=== PATIENT | male | born 1950 ===

== ENCOUNTER → 2019-02-12 | Outpatient (CLI) | payer MEDICARE ==
[~2019-02-12] MED LIST: Aspirin EC81 MG PO; BP MED; DOXE10 PO; LISHYD1012; TAMS.4ER; [UNRECOGNIZED DRUG - OTHER]
== END | disposition home or self-care (01) ==
LOC: LAB 10:28 → LAB SHORT 10:28
DX: N20.0 Calculus of kidney (principal); N40.1 Benign prostatic hyperplasia with lower urinary tract symptoms; N13.8 Other obstructive and reflux uropathy
CPT/HCPCS: 81050

== ENCOUNTER 2019-05-30 10:29 | Observation (INO) | payer MEDICARE ==
[~2019-05-30] VITALS: Ht 172.7 cm; Wt 110.9 kg
[~2019-05-30 10:29] MED LIST changes: -TAMS.4ER; +TAMS.4ER PO
[2019-05-30 11:26] LABS: BASOPHILS ABSOLUTE AUTO 0.08 K/mm3 (0.00-0.23); BASOPHILS PERCENT AUTO 1 % (0-2); EOSINOPHILS ABSOLUTE AUTO 0.17 K/mm3 (0.00-0.68); EOSINOPHILS PERCENT AUTO 2 % (0-6); Hematocrit 46.6 % (37.0-53.0); Hemoglobin 15.6 g/dL (13.5-17.5); IMMATURE GRAN ABSOLUTE AUTO 0.05 K/mm3 (0.00-0.10); IMMATURE GRAN PERCENT AUTO 1 % (0-1); LYMPHOCYTES PERCENT AUTO 22 % (21-46); MONOCYTES ABSOLUTE AUTO 0.94 K/mm3 (0.16-1.47); MONOCYTES PERCENT AUTO 10 % (4-13); Mean Corpuscular HGB 32.4 pg (26.0-34.0); Mean Corpuscular HGB Conc 33.5 g/dL (31.5-36.5); Mean Corpuscular Volume 97 fL (80-100); Mean Platelet Volume 12.4 fL (9.1-12.4); NEUTROPHILS ABSOLUTE AUTO 5.93 K/mm3 (1.96-9.15); NEUTROPHILS PERCENT AUTO 65 % (41-73); Platelet Count 223 K/mm3 (150-400); RDW Coefficient Variation 12.2 % (11.7-14.2); RDW Standard Deviation 43.7 fL (35.1-46.3); Red Blood Cell Count 4.81 M/mm3 (4.30-5.90); White Blood Cell Count 9.17 K/mm3 (4.00-11.30)
[2019-05-30] MEDS ORDERED: POTCIT10 PO (11:33)
[2019-05-30] MEDS ORDERED: FINA5 PO (11:34)
[2019-05-30] MEDS ORDERED: Toprol Xl50 MG PO (11:34)
[2019-05-30 11:47] LABS: Alanine Aminotransfer (ALT/SGP 71 U/L (12-78); Albumin, Blood 3.7 g/dL (3.4-5.0); Albumin/Globulin Ratio 0.9 (0.8-1.8); Alk Phos 162 U/L (50-136); Anion Gap 7 mmol/L (6-16); Aspartate Aminotrans (AST/SGOT 52 U/L (12-37); Bilirubin, Total 0.7 mg/dL (0.1-1.0); Blood Urea Nitrogen 10 mg/dL (8-24); Bun/Creatinine Ratio 10.6 (12.0-20.0); CO2, Blood 27 mmol/L (21-32); Chloride, Blood 110 mmol/L (98-108); Creatinine, Blood 0.94 mg/dL (0.60-1.20); Globulin, Blood 4.2 g/dL (2.2-4.0); Glomerular Filtration Rate >60 (60-); Glucose, Blood 121 mg/dL (70-99); Sodium, Blood 144 mmol/L (136-145); Total Protein, Blood 7.9 g/dL (6.4-8.2); Troponin I <0.015 ng/mL (0.000-0.040)
[2019-05-30 15:39] LABS: CPK Creatine Kinase 81 U/L (39-308)
[2019-05-30 15:43] LABS: Creatine Kinase MB <1.0 ng/mL (0.0-3.6); Creatine Kinase MB Index Unable to Calculate (0.0-4.0)
[2019-05-30 15:45] LABS: CHOL/HDL RATIO 7.1; Cholesterol 156 mg/dL (50-200); HDL Cholesterol 22 mg/dL (>39); LDL/HDL RATIO 4.5; Low Density Lipoprotein Chol 100 mg/dL (0-110); Magnesium, Blood 2.1 mg/dL (1.6-2.4); Triglycerides 171 mg/dL (30-160); Troponin I <0.015 ng/mL (0.000-0.040); Very Low Density Lipoprot Chol 34 mg/dL (6-32)
--- NOTE | 2019-05-30 17:47 | NUR ---
PT STATES EXPERIENCED LIGHTHEADEDNESS, FELT REALLY DIZZY WITH NITRO. CALLED DR. TOMLIN. THEA D/C NITRO PATCH, KEEP NITRO S/L ON EMAR IF NEED.
--- NOTE | 2019-05-30 18:37 | NUR ---
PT QUITE PLEASANT THIS AFT SINCE ADMIT. STATES ONLY LIGHT CHEST PAIN. REPORT OF SOME PAIN IN L ARM. MEDICATED WITH 12.5 MCG FENTANYL. DID RECEIVE GOOD PAIN RELEIF. IS PRESENTLY TALKING AND LAUGHING WITH FAMILY. PT STILL WORKS [employer]. CAR [employer]PA[employer] BUSINESS IN [place]. NO OTHER CONCERNS AT THIS TIME. BED IN LOW POSITION. CALL LITE IN REACH, CALLS APPROP
[2019-05-30 23:17] LABS: CPK Creatine Kinase 88 U/L (39-308); Troponin I <0.015 ng/mL (0.000-0.040)
[2019-05-30 23:27] LABS: Creatine Kinase MB <1.0 ng/mL (0.0-3.6); Creatine Kinase MB Index Unable to Calculate (0.0-4.0)
[2019-05-31 07:17] LABS: BASOPHILS ABSOLUTE AUTO 0.07 K/mm3 (0.00-0.23); BASOPHILS PERCENT AUTO 1 % (0-2); EOSINOPHILS ABSOLUTE AUTO 0.24 K/mm3 (0.00-0.68); EOSINOPHILS PERCENT AUTO 3 % (0-6); Hematocrit 44.3 % (37.0-53.0); Hemoglobin 14.9 g/dL (13.5-17.5); IMMATURE GRAN ABSOLUTE AUTO 0.03 K/mm3 (0.00-0.10); IMMATURE GRAN PERCENT AUTO 0 % (0-1); LYMPHOCYTES ABSOLUTE AUTO 1.98 K/mm3 (0.84-5.20); LYMPHOCYTES PERCENT AUTO 28 % (21-46); MONOCYTES ABSOLUTE AUTO 0.81 K/mm3 (0.16-1.47); MONOCYTES PERCENT AUTO 11 % (4-13); Mean Corpuscular HGB 33.2 pg (26.0-34.0); Mean Corpuscular HGB Conc 33.6 g/dL (31.5-36.5); Mean Corpuscular Volume 99 fL (80-100); Mean Platelet Volume 11.8 fL (9.1-12.4); NEUTROPHILS ABSOLUTE AUTO 4.07 K/mm3 (1.96-9.15); NEUTROPHILS PERCENT AUTO 57 % (41-73); Platelet Count 209 K/mm3 (150-400); RDW Coefficient Variation 12.1 % (11.7-14.2); RDW Standard Deviation 44.2 fL (35.1-46.3); Red Blood Cell Count 4.49 M/mm3 (4.30-5.90)
[2019-05-31 07:42] LABS: Anion Gap 6 mmol/L (6-16); Blood Urea Nitrogen 11 mg/dL (8-24); Bun/Creatinine Ratio 11.4 (12.0-20.0); CO2, Blood 28 mmol/L (21-32); CPK Creatine Kinase 97 U/L (39-308); Calcium, Blood 8.6 mg/dL (8.5-10.1); Chloride, Blood 108 mmol/L (98-108); Creatinine, Blood 0.97 mg/dL (0.60-1.20); Glomerular Filtration Rate >60 (60-); Glucose, Blood 159 mg/dL (70-99); Magnesium, Blood 2.3 mg/dL (1.6-2.4); Sodium, Blood 142 mmol/L (136-145); Troponin I <0.015 ng/mL (0.000-0.040)
[2019-05-31 07:43] LABS: Creatine Kinase MB <1.0 ng/mL (0.0-3.6); Creatine Kinase MB Index Unable to Calculate (0.0-4.0)
--- NOTE | 2019-05-31 08:00 | NUR ---
PT PLEASANT COOP A/O DENIES PAIN THIS MORNING. STATES IF ANY IS LIGHT IN LEFT ARM. DENIES CHEST PAIN. H/R REG, NO MURMER NOTED. PER TELE: NSR WITH OCC PVC'S RATE 65. LUNGS CLEAR, RESP EASY, UNLABORED. ON 1L O2. BT X4 LAST BM THIS AM. NORMAL PER PT. VOIDS INDEPENDANT IN ROOM. BED IN LOW POSITIOIN, CALL LITE IN REACH, CALLS APROP. AT BEDSIDE.
[2019-05-31] MEDS ORDERED: HYDCHL12.5 PO (08:59)
[2019-05-31] MEDS ORDERED: NITR.4SL SL (09:00)
--- NOTE | 2019-05-31 09:40 | NUR ---
UNABLE TO SCHEDULED OUTPATIENT STRESS TEST ON THE WEEKEND. DR NOBLES NOTIFIED BY BETTY CANTRELL AND REPORTS HE WILL PLACE AN ORDER FOR SUNDAY. ORDERS FAXED TO [facility] AND [facility] TO SCHEDULE OUTPATIENT STRESS TEST. [facility] NUMBER PLACED ON DISCHARGE PAPER WORK FOR PATIENT.
--- NOTE | 2019-05-31 10:45 | NUR ---
DISCHARGE REVIEWED WITH PT AND . IV PULLED INTACT. TELE REMOVED. PT VERBALIZED UNDERSTANDING OF MEDS, APPOINTMENTS. SPECIFICALLY THE STRESS TEST WILL CALL [facility] TO SCHEDULE FOR SUNDAY. PAPERS HAVE BEEN FAXED TO [facility] ALSO.
--- NOTE | 2019-05-31 10:52 | NUR ---
PT WHEELED TO DOOR BY GRACEE. [id number]
== END 2019-05-31 10:50 | disposition home or self-care (01) ==
LOC: ER 10:29 → MEDS 10:30 → ENPENDDIS 05-31 07:58 → MEDS 05-31 10:50
PROVIDERS: Physician Assistant; ADMIT Family Medicine
DX: R07.89 Other chest pain (principal); I16.0 Hypertensive urgency; I10 Essential (primary) hypertension; N40.0 Benign prostatic hyperplasia without lower urinary tract symptoms; E66.01 Morbid (severe) obesity due to excess calories; Z87.891 Personal history of nicotine dependence; Z86.73 Personal history of transient ischemic attack (TIA), and cerebral infarction without residual deficits; Z88.5 Allergy status to narcotic agent; Z79.899 Other long term (current) drug therapy; Z68.36 Body mass index [BMI] 36.0-36.9, adult
CPT/HCPCS: 36415; 71046; 80048; 80053; 80061; 82550; 82553; 83036; 83735; 83880; 84443; 84484; 85025; 93005; 93010; 93306; 96361; 96372; 96374; 96375; 99285-25; G0378; J0360; J1650; J3010; J7030

== ENCOUNTER → 2019-11-19 | Outpatient (CLI) | payer MEDICARE ==
[~2019-11-19] MED LIST changes: +FINA5 PO; +HYDCHL12.5 PO; +NITR.4SL SL; +POTCIT10 PO; +Toprol Xl50 MG PO
== END | disposition home or self-care (01) ==
LOC: LAB 07:00 → LAB SHORT 07:00 → EDSTATUS 01-21 16:50 → LAB FUT 01-21 16:50
DX: N20.0 Calculus of kidney (principal)
CPT/HCPCS: 81050

== ENCOUNTER 2022-04-24 10:51 | Inpatient (IN) | payer OTHER ==
[~2022-04-24] VITALS: Ht 177.8 cm; Wt 102.5 kg
[2022-04-24 11:22] LABS: BASOPHILS ABSOLUTE AUTO 0.08 K/mm3 (0.00-0.23); BASOPHILS PERCENT AUTO 1 % (0-2); EOSINOPHILS ABSOLUTE AUTO 0.24 K/mm3 (0.00-0.68); EOSINOPHILS PERCENT AUTO 3 % (0-6); Hematocrit 42.7 % (37.0-53.0); Hemoglobin 14.6 g/dL (13.5-17.5); IMMATURE GRAN ABSOLUTE AUTO 0.01 K/mm3 (0.00-0.10); IMMATURE GRAN PERCENT AUTO 0 % (0-1); LYMPHOCYTES ABSOLUTE AUTO 1.81 K/mm3 (0.84-5.20); LYMPHOCYTES PERCENT AUTO 24 % (21-46); MONOCYTES ABSOLUTE AUTO 0.58 K/mm3 (0.16-1.47); MONOCYTES PERCENT AUTO 8 % (4-13); Mean Corpuscular HGB 33.7 pg (26.0-34.0); Mean Corpuscular HGB Conc 34.2 g/dL (31.5-36.5); Mean Corpuscular Volume 99 fL (80-100); Mean Platelet Volume 12.2 fL (9.1-12.4); NEUTROPHILS ABSOLUTE AUTO 4.96 K/mm3 (1.96-9.15); NEUTROPHILS PERCENT AUTO 65 % (41-73); Platelet Count 214 K/mm3 (150-400); RDW Coefficient Variation 12.1 % (11.7-14.2); RDW Standard Deviation 44.1 fL (35.1-46.3); Red Blood Cell Count 4.33 M/mm3 (4.30-5.90); White Blood Cell Count 7.68 K/mm3 (4.00-11.30)
[2022-04-24 11:38] LABS: Albumin, Blood 3.4 g/dL (3.4-5.0); Albumin/Globulin Ratio 0.9 (0.8-1.8); Bilirubin, Total 0.5 mg/dL (0.1-1.0); Calcium, Blood 8.6 mg/dL (8.5-10.1); Creatinine, Blood 1.08 mg/dL (0.60-1.20); Globulin, Blood 3.9 g/dL (2.2-4.0); Potassium, Blood 4.2 mmol/L (3.5-5.5); Total Protein, Blood 7.3 g/dL (6.4-8.2)
[2022-04-24] MEDS ORDERED: ATOR40TA PO (17:25)
[2022-04-24] MEDS ORDERED: CLOP75 PO (17:26)
[2022-04-24] MEDS ORDERED: ASPI325 PO (17:26)
[2022-04-24] MEDS ORDERED: FINA5 PO (17:27)
[2022-04-24] MEDS ORDERED: METF500 PO (17:27)
[2022-04-24] MEDS ORDERED: LISI20 PO (17:27)
--- NOTE | 2022-04-24 19:57 | NUR ---
PATIENT IS ALERT AND ORIENTED AND COOPERATIVE WITH CARE. NO C/O DIZZINESS. SBA TO THE BATHROOM WITH FWW AND GAITBELT. AT BEDSIDE.
--- NOTE | 2022-04-25 03:45 | NUR ---
SUMMARY: PT A/OX4, CALLS APPROPRIATELY TO SPECIFY NEEDS AND IS PLEASANT AND COOPERATIVE W/CARE. REMAINED AT BEDSIDE AND OCCASIONALLY ASSISTS W/CARE. HE'S UP W/1PA D/T BEING UNSTEADY AT TIME AND MOVING QUICKLY. HE USED URINAL IN BED AND SLEPT MOST OF NOCTE. NO DEFICITS OBSERVED BUT PT DOES REPORT NUMBNESS TO L.SIDE POST CVA APPROX 1 MONTH AGO. HE'S DENIED DIZZYNESS AND ALL OTHER S/S STROKE THIS SHIFT. NS WAS COMMENCED AT 125 ML/HR X1 BAG AND HE'S BEEN NPO EXCEPT ICE/MEDS PENDING CORONARY RISK PANEL THIS AM. HE'S REMAINED NSR ON TELEMETRY AT 60'S BPM. VSS/AFEBRILE. NO ACUTE CHANGES. WCTM/REPORT TO DAY RN.
[2022-04-25 05:31] LABS: BASOPHILS ABSOLUTE AUTO 0.07 K/mm3 (0.00-0.23); BASOPHILS PERCENT AUTO 1 % (0-2); EOSINOPHILS ABSOLUTE AUTO 0.38 K/mm3 (0.00-0.68); EOSINOPHILS PERCENT AUTO 5 % (0-6); Hemoglobin 13.6 g/dL (13.5-17.5); IMMATURE GRAN ABSOLUTE AUTO 0.02 K/mm3 (0.00-0.10); IMMATURE GRAN PERCENT AUTO 0 % (0-1); LYMPHOCYTES ABSOLUTE AUTO 2.59 K/mm3 (0.84-5.20); LYMPHOCYTES PERCENT AUTO 31 % (21-46); MONOCYTES ABSOLUTE AUTO 0.72 K/mm3 (0.16-1.47); MONOCYTES PERCENT AUTO 9 % (4-13); Mean Corpuscular HGB 33.6 pg (26.0-34.0); Mean Corpuscular Volume 99 fL (80-100); Mean Platelet Volume 12.7 fL (9.1-12.4); NEUTROPHILS ABSOLUTE AUTO 4.55 K/mm3 (1.96-9.15); NEUTROPHILS PERCENT AUTO 55 % (41-73); Platelet Count 202 K/mm3 (150-400); RDW Coefficient Variation 11.9 % (11.7-14.2); RDW Standard Deviation 43.6 fL (35.1-46.3); Red Blood Cell Count 4.05 M/mm3 (4.30-5.90); White Blood Cell Count 8.33 K/mm3 (4.00-11.30)
[2022-04-25 06:01] LABS: Anion Gap 4 mmol/L (6-16); Blood Urea Nitrogen 15 mg/dL (8-24); Bun/Creatinine Ratio 14.6 (12.0-20.0); CO2, Blood 25 mmol/L (21-32); Calcium, Blood 8.6 mg/dL (8.5-10.1); Chloride, Blood 113 mmol/L (98-108); Cholesterol 69 mg/dL (50-200); Creatinine, Blood 1.03 mg/dL (0.60-1.20); Glomerular Filtration Rate 78 (60-); Glucose, Blood 104 mg/dL (70-99); HDL Cholesterol 23 mg/dL (>39); LDL/HDL RATIO 0.9; Low Density Lipoprotein Chol 21 mg/dL (0-110); Potassium, Blood 3.8 mmol/L (3.5-5.5); Sodium, Blood 142 mmol/L (136-145); Triglycerides 126 mg/dL (30-160); Very Low Density Lipoprot Chol 25 mg/dL (6-32)
[2022-04-25] MEDS ORDERED: FISH OIL PO (12:19)
== END 2022-04-25 17:09 | disposition home or self-care (01) | DRG 66 ==
LOC: ER 10:51 → ERHOLD 14:19 → MEDS 14:19
PROVIDERS: Emergency Medicine; Nurse Practitioner Acute Care; ADMIT Internal Medicine
DX: I63.9 Cerebral infarction, unspecified (principal); I10 Essential (primary) hypertension; N40.0 Benign prostatic hyperplasia without lower urinary tract symptoms; Z86.73 Personal history of transient ischemic attack (TIA), and cerebral infarction without residual deficits; E66.01 Morbid (severe) obesity due to excess calories; Z87.442 Personal history of urinary calculi; Z98.890 Other specified postprocedural states; Z87.891 Personal history of nicotine dependence; Z68.34 Body mass index [BMI] 34.0-34.9, adult; R26.81 Unsteadiness on feet
CPT/HCPCS: 36415; 70450; 70544; 70551; 80048; 80053; 80061; 82947; 83036; 84484; 85025; 93005; 93010; 93306; 93880; 96374; 97110; 97116; 97162; 97165; 97535; 99285-25; A9270; J1650; J2405; J7030

== ENCOUNTER 2024-05-06 07:59 | Day surgery (SDC) | payer OTHER ==
[~2024-05-06] VITALS: Ht 177.8 cm; Wt 102.5 kg
[~2024-05-06 07:59] MED LIST changes: +ASPI325 PO; +ATOR40TA PO; +Balanced Salt Epinephrine Irrigation Solution 500 mL IR SCH; +CLOP75 PO; +FISH OIL PO; +LISI20 PO; +Lidocaine HCl/Pf 1% 5 ML VIAL XX SCH; +METF500 PO; +Moxifloxacin HCL 0.5 MG/0.1 ML 0.4MLSYR RIGHTEYE SCH; +NS 500 ML IV ONE; +PHENYLEPHRINE\\TROPICAMIDE\\TETRACAINE OPHTHALMIC DILATING SOLN RIGHTEYE PRN; +Povidone-Iodine 450 DROP/30 ML Solution RIGHTEYE SCH
[2024-05-06] MEDS ORDERED: NS 500 ML IV ONE (08:26)
[2024-05-06] MEDS ORDERED: FentaNYL Citrate 50 MCG/ML 2 ML Injection ONE (08:40)
[2024-05-06] MEDS ORDERED: Midazolam HCl 1MG / ML 2ML Vial ONE (08:40)
[2024-05-06] MEDS ORDERED: Tetracaine HCl 0.5% Opth Soln 15 ml RIGHTEYE ONE (08:59)
[2024-05-06 09:22] VITALS: BP 163/77
== END 2024-05-06 09:40 | disposition home or self-care (01) ==
LOC: ORSCSDS 07:59
PROVIDERS: Student in an Organized Health Care Education/Training Program
PROC: 08RJ3JZ Replacement of Right Lens with Synthetic Substitute, Percutaneous Approach (ICD-10-PCS; principal; 2024-05-06 09:30)
DX: E11.36 Type 2 diabetes mellitus with diabetic cataract (principal); H25.811 Combined forms of age-related cataract, right eye; H21.81 Floppy iris syndrome; Z96.1 Presence of intraocular lens; Z86.73 Personal history of transient ischemic attack (TIA), and cerebral infarction without residual deficits; I10 Essential (primary) hypertension; E66.9 Obesity, unspecified; Z68.32 Body mass index [BMI] 32.0-32.9, adult; Z87.891 Personal history of nicotine dependence; Z79.82 Long term (current) use of aspirin; Z79.84 Long term (current) use of oral hypoglycemic drugs; Z79.899 Other long term (current) drug therapy
CPT/HCPCS: 82947; J2250; J3010; J7040; V2632